=== PATIENT | female | born 1995 | race Caucasian/White ===

== ENCOUNTER 2019-09-13 22:26 | Observation (INO) | payer OTHER, SELFPAY ==
--- NOTE | 2019-09-13 22:26 | OBADM ---
This patient, Deborah Norman, admitted to the OB room OB Post 116 for observation. Patient/family oriented to hospital policies and general routines including ID bracelet, bed and alarms, visiting hours, pain management, procedures, bathroom and other care routines, personal items, smoking policy, room service/diet, and visiting hours. Patient/Family are encouraged to report perceived risks to care and to ask questions if they do not understand what they are told or what they should do.
[2019-09-13 22:35] VITALS: BMI 33.0
[2019-09-13 22:48] VITALS: TEMP 36.5
[2019-09-13 22:55] VITALS: BP 106/54; PULSE 102
[2019-09-13 23:22] LABS: Add Urine Microscopic? YES; Appearance Urine Clear (Clear); Bacteria Urine Trace /hpf; Bilirubin Urine Negative (Negative); Blood Urine Negative (Negative); Calcium Oxalate Crystals Urine Present /hpf; Color Urine Yellow (Yellow); Glucose Urine UA Negative (Negative); Ketones Urine Negative (Negative); Leukocyte Esterase Ur Negative LEU/UL (Negative); Mucus Urine Rare /lpf; Nitrate Urine Negative (Negative); Protein Urine Negative (Negative); RBC Urine 0-2 /hpf (0-2); Specific Grav Ur 1.024 (1.001-1.035); Squamous Epithelial Cell Urine Occasional /hpf (Few); WBC Urine 0-3 /hpf
--- NOTE | 2019-09-13 23:37 | PC.NURSE ---
Updated Dr. Muir with UA results. Updated on maternal assessment and FHR. Discharge orders received.
--- NOTE | 2019-09-13 23:59 | PC.NURSE ---
Discharge instructions reviewed with patient. Patient states understanding of discharge instructions. labor precautions reviewed. Patient educated on support belt and instructed to get one to help with back pain. Patient states understanding. Patient agrees to discharge and denies questions. Patient left OB unit ambulating at [id number].
--- NOTE | 2019-09-14 15:49 | P.PNOB_ITS ---
OB - Triage/Final Diagnosis Evaluation Laboratory results: Laboratory Tests 09/13/19 23:08 Urine Color Yellow Urine Appearance Clear Urine pH 6.0 Ur Specific [place] 1.024 Urine Protein Negative Urine Glucose (UA) Negative Urine Ketones Negative Ur Blood (Man) Negative Urine Nitrate Negative Urine Bilirubin Negative Urine Urobilinogen 2.0 H Leukocyte Esterase Rfl Negative Urine RBC 0-2 Urine WBC 0-3 Ur Squamous Epith Cells Occasional Calcium Oxalate Crystal Present Urine Bacteria Trace Urine Mucus Rare Vital signs: Vital Signs - 24 hr 09/13/19 22:48 09/13/19 22:55 Temperature 36.5 C Pulse Rate 102 H Blood Pressure 106/54 L Final Diagnosis (1) Back pain affecting : Code(s): O99.89 - Other specified diseases and conditions complicating , childbirth and the puerperium; M54.9 - Dorsalgia, unspecified Status: Acute
== END 2019-09-13 23:59 | disposition home or self-care (01) ==
PROVIDERS: Admitting Provider Obstetrics & Gynecology; PCP Family Medicine; Visit Provider Obstetrics & Gynecology
DX: O99.89 Other specified diseases and conditions complicating pregnancy, childbirth and the puerperium (principal); M54.9 Dorsalgia, unspecified; Z3A.00 Weeks of gestation of pregnancy not specified
CPT/HCPCS: 81001; G0378; G0379

== ENCOUNTER 2019-10-24 16:57 | Outpatient (RCR) | payer OTHER, SELFPAY ==
--- NOTE | ~2019-10-24 | US_ITS ---
EXAMINATION: US OB limited w BPP DATE: 10/24/2019 18:09 CDT INDICATION: Decreased movements. TECHNIQUE: Real-time transabdominal obstetric ultrasound. FINDINGS: No prior studies for comparison. There is a single living fetus in breech presentation. The placenta is anterior without placenta pre via. cardiac activity and movement is noted with a heart rate of 169 beats per minute. Biophysical profile: breathin of 2 movement: 2 of 2 tone: 2 of 2 Amniotic flud pocket: 2 of 2 Total score: 8 of 8 IMPRESSION: 1. Single living intrauterine in breech presentation. 2: Total biophysical profile score of 8/8. Reviewed, dictated and finalized at location A.
[2019-10-24 18:28] VITALS: BP 111/52; PULSE 105
== END 2020-01-22 23:59 | disposition home or self-care (01) ==
LOC: ANHOBOP 16:57
PROVIDERS: PCP Family Medicine; Visit Provider Obstetrics & Gynecology
DX: O36.8120 Decreased fetal movements, second trimester, not applicable or unspecified (principal); O24.419 Gestational diabetes mellitus in pregnancy, unspecified control; Z3A.27 27 weeks gestation of pregnancy
CPT/HCPCS: 59025; 76815; 76819

== ENCOUNTER 2019-11-15 15:53 | Observation (INO) | payer OTHER, SELFPAY ==
[2019-11-15] VITALS (38 sets, daily range): BP systolic 100–111; BP diastolic 55–68; PULSE 102–115; TEMP 36.6; O2SAT 97–100; BMI 33.0
[2019-11-15 16:30] LABS: Glucose Point of Care 58 (65-105)
[2019-11-15 18:02] LABS: Glucose Point of Care 69 (65-105)
[2019-11-15 18:07] LABS: Hematocrit 36.4 % (37.0-47.0); Hemoglobin 12.2 g/dL (12.0-15.0); Mean Corpuscular HGB Conc 33.5 g/dl (32-36); Mean Corpuscular Hemoglobin 28.2 pg (26-34); Mean Corpuscular Volume 84.1 fl (80-100); Mean Platelet Volume 10.2 fl (7.4-10.4); Platelet Count Result 223 k/mm3 (150-375); Red Blood Count 4.33 M/mm3 (4.2-5.4); Red Cell Distribution Width 13.2 % (11.5-14.5); White Blood Count 15.8 K/mm3 (4.5-10.0)
[2019-11-15 18:16] LABS: Alanine Aminotransferase 10 U/L (4-35); Albumin Level 3.7 g/dL (3.5-5.1); Alkaline Phosphatase 107 U/L (38-126); Anion Gap 8 mmol/L (8-16); Aspartate Amino Transferase 14 U/L (14-36); Bilirubin,Total 0.3 mg/dL (0.2-1.3); Blood Urea Nitrogen 6 mg/dL (7-17); Calcium 9.3 mg/dL (8.4-10.2); Carbon Dioxide 21 mmol/L (22-30); Chloride 103 mmol/L (98-107); Estimated CRCL calculation 178 ml/min; Estimated Glomerular Filt Rate > 60; Glucose 86 mg/dL (65-105); Potassium 3.8 mmol/L (3.4-5.0); Sodium 132 mmol/L (137-145)
--- NOTE | 2019-11-17 08:43 | PM.OBTRLD ---
OB - Triage/Final Diagnosis Visit Information Reason for evaluation: threatened labor Evaluation Laboratory results: Laboratory Tests 11/15/19 11/15/19 11/15/19 16:19 17:48 17:48 WBC 15.8 H RBC 4.33 Hgb 12.2 Hct 36.4 L MCV 84.1 MCH 28.2 MCHC 33.5 RDW 13.2 Plt Count 223 MPV 10.2 Sodium 132 L Potassium 3.8 Chloride 103 Carbon Dioxide 21 L Anion Gap 8 BUN 6 L Creatinine 0.40 L Estim Creat Clear Calc 178 Estimated GFR > 60 Glucose 86 POC Capillary Glucose 58 L* Calcium 9.3 Total Bilirubin 0.3 AST 14 ALT 10 Alkaline Phosphatase 107 Total Protein 7.0 Albumin 3.7 11/15/19 17:58 WBC RBC Hgb Hct MCV MCH MCHC RDW Plt Count MPV Sodium Potassium Chloride Carbon Dioxide Anion Gap BUN Creatinine Estim Creat Clear Calc Estimated GFR Glucose POC Capillary Glucose 69 Calcium Total Bilirubin AST ALT Alkaline Phosphatase Total Protein Albumin
== END 2019-11-15 18:40 | disposition home or self-care (01) ==
PROVIDERS: Obstetrics & Gynecology; Admitting Provider Obstetrics & Gynecology; PCP Family Medicine; Visit Provider Obstetrics & Gynecology
DX: O47.9 False labor, unspecified (principal); Z3A.00 Weeks of gestation of pregnancy not specified
CPT/HCPCS: 36415; 80053; 85027; G0378; G0379

== ENCOUNTER 2019-12-12 19:52 | Observation (INO) | payer OTHER, SELFPAY ==
--- NOTE | 2019-12-12 19:52 | OBADM ---
This patient, Deborah Norman, admitted to the OB room Labor/Delivery/Recovery 105 for observation. Patient/family oriented to hospital policies and general routines including ID bracelet, bed and alarms, visiting hours, pain management, procedures, bathroom and other care routines, personal items, smoking policy, room service/diet, and visiting hours. Patient/Family are encouraged to report perceived risks to care and to ask questions if they do not understand what they are told or what they should do.
[2019-12-12 20:11] VITALS: RESP 18; TEMP 36.5
[2019-12-12 20:13] VITALS: BP 111/69; PULSE 118
[2019-12-12 20:15] VITALS: BP 116/68; PULSE 109; BMI 34.6
[2019-12-12 20:35] LABS: Glucose Point of Care 95 (65-105)
[2019-12-12 20:40] LABS: Add Urine Microscopic? YES; Amorphous Sediment Urine Few; Appearance Urine Cloudy (Clear); Bacteria Urine Trace /hpf; Bilirubin Urine Negative (Negative); Blood Urine Negative (Negative); Color Urine Yellow (Yellow); Glucose Urine UA Negative (Negative); Ketones Urine 1+ mg/dL (Negative); Leukocyte Esterase Ur 2+ LEU/UL (NEGATIVE); Mucus Urine Rare /lpf; Nitrate Urine Negative (Negative); Protein Urine 1+ mg/dL (Negative); Specific Grav Ur 1.027 (1.001-1.035); Squamous Epithelial Cell Urine Moderate /hpf (Few); Urobilinogen Urine Negative mg/dL (<2.0); WBC Urine 51-75 /hpf (0-3)
[2019-12-12] MEDS: LACTATED RINGERS 1,000 ML 999 ML IV CONT (21:05)
[2019-12-12 22:52] VITALS: BP 108/70; PULSE 101
[2019-12-12] MEDS: ACETAMINOPHEN 500 MG TABLET 1000 MG PO (23:19)
[2019-12-12] MEDS: FAMOTIDINE 20 MG TABLET PO (23:20)
[2019-12-13] MEDS: LACTATED RINGERS 1,000 ML 200 ML IV CONT ×2 (00:01→05:03)
[2019-12-13] MEDS: INSULIN HUMAN NPH (*BKC) 100 UNITS/ML 14 UNITS SUB-Q (00:17)
[2019-12-13 06:32] VITALS: BP 109/66; PULSE 93; TEMP 36.3
[2019-12-13 07:45] LABS: Glucose Point of Care 77 (65-105)
--- NOTE | 2019-12-18 09:12 | PM.OBTRLD ---
OB - Triage/Final Diagnosis Evaluation Laboratory results: Laboratory Tests 12/12/19 12/12/19 12/13/19 20:27 20:32 06:41 POC Capillary Glucose 95 77 Urine Color Yellow Urine Appearance Cloudy H Urine pH 6.0 Ur Specific [place] 1.027 Urine Protein 1+ H Urine Glucose (UA) Negative Urine Ketones 1+ H Ur Blood (Man) Negative Urine Nitrate Negative Urine Bilirubin Negative Urine Urobilinogen Negative Ur Leukocyte Esterase 2+ H Urine RBC 3-5 H Urine WBC 51-75 H Ur Squamous Epith Cells Moderate H Amorphous Sediment Few H Urine Bacteria Trace Hyaline Casts 1-2 Urine Mucus Rare Final Diagnosis (1) False labor: Code(s): O47.9 - False labor, unspecified Status: Acute
== END 2019-12-13 07:41 | disposition home or self-care (01) ==
PROVIDERS: Obstetrics & Gynecology; Admitting Provider Obstetrics & Gynecology; PCP Family Medicine; Visit Provider Obstetrics & Gynecology
DX: O47.9 False labor, unspecified (principal); Z3A.00 Weeks of gestation of pregnancy not specified
CPT/HCPCS: 81001; 87086; 87088; 96360; 96361; A9270; G0378; G0379; J1815; J7120

== ENCOUNTER 2019-12-18 17:40 | Observation (INO) | payer OTHER, SELFPAY ==
[2019-12-18] VITALS (9 sets, daily range): BP systolic 94–111; BP diastolic 50–67; PULSE 107–125
[2019-12-18 19:50] LABS: Glucose Point of Care 110 (65-105)
--- NOTE | 2019-12-18 20:34 | LDADM ---
This patient, Deborah Norman, was admitted to OB Post 116 on 12/18/19 at 17:40. Plans for labor, pain management and were discussed with patient. Patient/family oriented to hospital policies and general routines including ID bracelet, bed and alarms, visiting hours, pain management, procedures, bathroom and other care routines, personal items, smoking policy, room service/diet and guest tray routines, infant security routines, and visiting hours. Patient/Family are encouraged to report perceived risks to care and to ask questions if they do not understand what they are told or what they should do. See OBIX for further documentation.
--- NOTE | 2019-12-18 20:58 | PC.NURSE ---
1824- pt came in c/o pelvic pressure and upper thigh pain, she believes that she lost her mucous plug yesterday. Pt sees Dr. Elliott at [facility] for GDM and plans to deliver at [facility]. pt states that she might feel some contractions but shes not sure if that's really what she is feeling.
--- NOTE | 2019-12-22 08:56 | PM.OBTRLD ---
OB - Triage/Final Diagnosis Visit Information Reason for evaluation: threatened labor Evaluation Laboratory results: Laboratory Tests 12/18/19 19:47 POC Capillary Glucose 110
== END 2019-12-18 20:45 | disposition home or self-care (01) ==
PROVIDERS: Admitting Provider Obstetrics & Gynecology; PCP Family Medicine; Visit Provider Obstetrics & Gynecology
DX: O47.9 False labor, unspecified (principal); Z3A.00 Weeks of gestation of pregnancy not specified
CPT/HCPCS: G0378; G0379

== ENCOUNTER 2019-12-26 19:53 | Observation (INO) | payer OTHER, SELFPAY ==
[2019-12-26] VITALS (11 sets, daily range): BP systolic 99–122; BP diastolic 50–69; PULSE 101–117; BMI 35.0
--- NOTE | 2019-12-27 01:43 | OBADM ---
This patient, Deborah Norman, admitted to the OB room Labor/Delivery/Recovery 103 for observation. Patient/family oriented to hospital policies and general routines including ID bracelet, bed and alarms, visiting hours, pain management, procedures, bathroom and other care routines, personal items, smoking policy, room service/diet, and visiting hours. Patient/Family are encouraged to report perceived risks to care and to ask questions if they do not understand what they are told or what they should do.
--- NOTE | 2019-12-27 01:45 | PC.NURSE ---
2300: pt given instructions for discharge. Advised pt to follow up with her MD at [facility]. Pt did not know names of MD she has been seeing at [facility].
--- NOTE | 2019-12-27 17:18 | PM.OBTRLD ---
OB - Triage/Final Diagnosis Visit Information Reason for evaluation: threatened labor Evaluation Baseline heart rate: 144 Variability: Average (6-10) monitor accelerations: Present monitor decelerations: None Cervical dilation (cm): 0 Cervical effacement (%): 50 station: -3 Vital signs: Vital Signs - 24 hr 12/26/19 20:12 12/26/19 20:16 12/26/19 20:31 Pulse Rate 113 H 111 H 117 H Blood Pressure 122/69 109/50 L 115/62 12/26/19 20:46 12/26/19 21:01 12/26/19 21:16 Pulse Rate 109 H 112 H 102 H Blood Pressure 106/56 L 99/50 L 106/66 12/26/19 21:31 12/26/19 21:46 12/26/19 22:01 Pulse Rate 101 H 103 H 101 H Blood Pressure 109/62 102/60 109/64 12/26/19 22:16 12/26/19 22:31 Pulse Rate 101 H 104 H Blood Pressure 112/61 108/60 Final Diagnosis (1) False labor: Code(s): O47.9 - False labor, unspecified Status: Acute
== END 2019-12-26 23:11 | disposition home or self-care (01) ==
PROVIDERS: Admitting Provider Obstetrics & Gynecology; PCP Family Medicine; Visit Provider Obstetrics & Gynecology
DX: O47.03 False labor before 37 completed weeks of gestation, third trimester (principal); Z3A.36 36 weeks gestation of pregnancy
CPT/HCPCS: G0378; G0379

== ENCOUNTER 2020-02-11 18:59 | Emergency (ER) | payer OTHER, SELFPAY ==
[2020-02-11 19:06] VITALS: BP 127/74; PULSE 76; RESP 18; TEMP 36.4; O2SAT 99
--- NOTE | 2020-02-11 19:58 | ED.NEUROSD ---
HPI - Neuro Symptoms/Deficit General Chief Complaint: Neuro Symptoms/Deficit Stated Complaint: back pain Time Seen by Provider: 02/11/20 19:21 Source: patient Mode of arrival: ambulatory Limitations: no limitations History of Present Illness HPI Narrative: 24-year-old female Presents for evaluation of back and neck and arm pain Patient states that she was injured at work roughly a year ago She was going through Worker's Comp. getting physical therapy and some kinds of pain injections Her belief is that when she did not improve from that that her employer fired her rather than pay for her to have an MRI for further evaluation Subsequent to that she found out she was and the whole thing was put on hold for a while due to that and pandemic issues with access Now that she had her baby about a month ago and continues to have symptoms she would like to be reevaluated The back pain is central mid back and worse with some movements The neck pain tends to be on the right side and radiates into her right shoulder and arm and is worse with moving her head or neck to the right that is associated with some paresthesias in the right arm as well There is no lower extremity numbness or weakness and no bowel or bladder symptoms Onset (ago): month(s) Related Data Home Medications Medication Instructions Recorded Confirmed albuterol sulfate 1 puff INHALATION PRN PRN 09/13/19 12/26/19 cetirizine 10 mg PO DAILY 09/13/19 12/26/19 folic acid 4 mg PO DAILY 09/13/19 12/26/19 Humulin N NPH Insulin KwikPen 24 unit SUBCUT HS 12/12/19 12/26/19 aspirin 81 mg PO DAILY 12/12/19 12/26/19 famotidine 20 mg PO DAILY 12/12/19 12/26/19 insulin lispro 4 unit SUBCUT DAILY 12/12/19 12/26/19 metformin 1,000 mg PO BID 12/12/19 12/26/19 Allergies Allergy/AdvReac Type Severity Reaction Status Date / Time lithium Allergy Mild Shakiness Verified 04/05/19 13:02 lavender (Lavandula Allergy Dyspnea / Verified 12/12/19 22:02 angustifolia) SOB phenazopyridine [From Azo] Allergy Hives Verified 12/12/19 22:02 aspartame AdvReac Migraine Verified 12/13/19 06:59 Review of Systems Constitutional: Constitutional: Denies chills and Denies fever(s) Musculoskeletal: Musculoskeletal: Reports as per HPI, Reports back pain, Reports myalgias and Reports arthralgias Neurologic: Denies focal weakness and Reports numbness PMFSH Past Medical History Medical History (Updated 02/11/20 @ 20:15 by Austin Noland MD) Allergic rhinitis Hypothyroidism Scoliosis of thoracic spine Social History Social History Smoking status: Never smoker Second hand tobacco smoke exposure: No Alcohol intake: never Gender identity (if verbalized by the patient): Female Exam Const: General: no acute distress and alert Nutritional Appearance: well nourished Orientation/consciousness: patient oriented x3 HENMT: Head: normal to inspection, no contusions and no hematomas Eyes: Conjunctivae: conjunctivae normal EOM: EOMs intact bilaterally Neck: Other: Neck is nontender Range of motion is modestly reduced with rotation or flexion to the right, and that does cause radicular pain into the shoulder and arm Resp: Effort & Inspection: normal respiratory effort and not labored Back/Spine/Pelvis: Other: Mild tenderness in mid back Skin: General skin exam: normal color Rashes: no rashes Neuro: General: patient oriented x3, moves all extremities and no focal motor deficits Other: Upper extremities are equally strong bilaterally Pulses are normal at both wrists Sensation to light touch may be decreased in the C8 distribution in the right hand Lower extremity strength is equal Extrem: General: normal to inspection Course Course Emergency Course: Discussed with patient that her symptoms are consistent with cervical radiculopathy but that the back pain was too low to account for those symptoms And
[2020-02-11 20:35] VITALS: BP 100/63; PULSE 89; RESP 16; TEMP 36.6; O2SAT 100
== END 2020-02-11 20:39 | disposition home or self-care (01) ==
PROVIDERS: Emergency Provider Emergency Medicine; PCP Family Medicine
DX: M54.12 Radiculopathy, cervical region (principal); E03.9 Hypothyroidism, unspecified
CPT/HCPCS: 99283

== ENCOUNTER 2020-03-21 08:30 | Outpatient (RCR) | payer OTHER, SELFPAY ==
--- NOTE | 2020-03-04 11:32 | PTOPEVAL ---
PHYSICAL THERAPY EVALUATION AND PLAN OF CARE 03-04-2020 Thank you for referring Deborah Norman to [facility].? She is scheduled to be seen for therapy? 2 x/week for 3 weeks. Please review, sign, date and return this plan of care EVANGELISTA. I agree with and certify that the following plan of care is medically necessary. Referring Physician Date Attending Provider: Shelli Avelar MD *PT Outpatient Evaluation Start: 03/04/20 10:41 Document 03/04/20 10:30 KEESHA (Rec: 03/04/20 11:32 KEESHA [id number]) A Outpatient Past Medical History Past Medical History Source of Past Medical History Patient,Recalled from Previous Visit, Confirmed with Patient /Family Neurological History Hx Neurological Disorders No Significant History Cardiovascular History Hx Cardiac Disorders No Significant History Respiratory History Hx Asthma Yes: have inhalers Gastrointestinal History Hx Gastroesophageal Reflux Disease Yes Hx Other Gastrointestinal Disorders Yes: lactose intolerant Genitourinary History Hx Genitourinary Disorders No Significant History Musculoskeletal History Hx Back Pain Yes: scoliosis Hx Other Musculoskeletal Disorders Yes: B achilles tendonitis surg ; '17 B plantar faciitis surg Endocrine History Hx Other Endocrine Disorders Yes: gestational diabetes HEENT History Hx Tonsillectomy Yes Reproductive History Hx Other Reproductive Disorders Yes: had baby 8 wk ago,natural ; no restrictions from [employer] Psychosocial History Hx Anxiety Yes Hx Depression Yes Hx Other Psychiatric Disorders Yes: stated have some mental health issues Pain History History of Any Previous or Ongoing No Significant History Instance of Pain Anesthesia History Hx Other Anesthesia Reactions Yes: N/V Evaluation Information Problem Diagnosis thoracic-lumbar- sacral pain Onset Jan 2019 Subjective Information in January 2019- was pushing Query Text:As Reported By Patient/ grocery carts, felt pop in Family middle of back; back locks up , problems with pain in back, cannot lift R arm up; was at work was work comp, but fired from there; previously had back pain from scoliosis, but after above accident pain is 10 x worse in back; had PT in the past did not work- had exercises and s
--- NOTE | 2020-03-06 08:31 | PCPTNOTE ---
pt called 30 min after appt time to cancel, due to having a sick child and has been up all night;
--- NOTE | 2020-03-17 09:33 | PCPTNOTE ---
pt did not show for today's appt; called her, she slept through appt, has sick baby; reminded her of next appt 03-21-20 for reeval.
--- NOTE | 2020-03-21 09:04 | PTOPEVAL ---
PHYSICAL THERAPY RE-EVALUATION 03-21-20 Refer to the clinical summary below for the comparison to the initial evaluation. She has a follow up appointment and wants to discuss PT treatments. Today, she reports pain is worse and therapy is not helping. If PT is to continue, please give her a new script. If additional orders are not received, she will be discharged from PT services. Thank you for referring Deborah Norman to [facility].? Please review, sign, date and return this reevaluation report EVANGELISTA. I agree with and certify that the following plan of care is medically necessary. Referring Physician Date Attending Provider: Shelli Avelar MD Document 03/21/20 08:20 KEESHA (Rec: 03/21/20 09:04 KEESHA [id number]) Assessment Status Re-evaluation Subjective Information Roopa reports: therapy is not Query Text:As Reported By Patient/ helping, have been doing Family exercises, feel like pain is getting more- over middle and low back, depends upon what I am doing--always hurts and cannot de anything; has dr appointment next week, want to see what the dr says before stop therapy. Pain Assessment Timing of Pain Assessment Timing of Pain Assessment Assessment Pain Scale Pain Scale Used Numeric (1 - 10) Self Report Pain Assessment Bilateral Spine, Lumbar Reported Pain Level 6 Pain Description Pressure Radicular Pain Location bone pain in thoracic spine Pain Frequency Chronic Other Pain Description hurting so bad, was crying; back locks up in flexion & extension positions Lowest Pain Intensity 6 Greatest Pain Intensity 9 Pain Aggravating Factors Exercise/Activity,Lifting Other Pain Aggravating Factors moving/lifting coffee table, rocking baby; Pain Behaviors Anxious Pain Score Pain Score 6: Self Report Additional Pain Score Comments reports: tolerance with sitting 10 min/walk 5 min/ sleep awaken 3-4 x/night; have fallen to the ground about 2x/week due to back; pt reports she has to leave in 30 minutes, has another appointment; self assessment Oswestry low back questionnaire score of 72 % limitation in activity tolerance. Interventions Used Interventions Used By
--- NOTE | 2020-04-21 12:58 | PCPTNOTE ---
PHYSICAL THERAPY DISCHARGE 04-21-20 Attending Provider: Shelli Avelar MD Patient:Deborah Norman Date of :1995 Ms. Norman has not returned for any further treatments since the reevaluation on 03/21/2020, therefore she will be discharged at this time. Refer to the reevaluation report for her status at the last session. Thank you for referring Deborah to [facility]. Please review, sign, date and return this discharge summary EVANGELISTA. I have been updated about the patient's current status and I agree with discharge from the above service at this time. Referring Physician Date
== END 2020-04-22 10:13 | disposition home or self-care (01) ==
LOC: ANHPT 08:30
PROVIDERS: PCP Family Medicine; Referring Provider Family Medicine; Visit Provider Family Medicine
DX: M51.9 Unspecified thoracic, thoracolumbar and lumbosacral intervertebral disc disorder (principal)
CPT/HCPCS: 97014; 97110; 97161; G0283

== ENCOUNTER 2020-05-03 13:40 | Outpatient (CLI) | payer OTHER, SELFPAY ==
--- NOTE | ~2020-05-03 | MR_ITS ---
EXAMINATION: MR thoracic spine wo con EXAM DATE: 05/03/2020 14:46 INDICATION: Thoracic pain. TECHNIQUE: Multi-sequential, multiplanar MR images of the thoracic spine were obtained without contra st. Sagittal T1, T2, T2 fat saturation, axial T2 weighted images reviewed. There is no prior study for comparison. FINDINGS: The vertebral bodies are aligned in the AP dimension. Vertebral body and disc heights are w ell-maintained. Thoracic disc heights are confined to their endplate margins. The thoracic spinal can al and neural foramen are widely patent. Number than mild mid and lower thoracic facet arthropathy. T he spinal cord signal intensity and intrinsic morphology is normal. There are no suspicious marrow si gnal abnormalities. Paraspinal soft tissue is unremarkable. IMPRESSION: Unremarkable MR thoracic spine wo con exam. Reviewed, dictated and finalized at location A. [facility]
== END 2020-05-03 13:41 | disposition home or self-care (01) ==
LOC: ANHIMG 13:43
PROVIDERS: PCP Family Medicine; Visit Provider Nurse Practitioner Family
DX: M54.6 Pain in thoracic spine (principal)
CPT/HCPCS: 72146

== ENCOUNTER 2020-05-06 10:13 | Outpatient (CLI) | payer OTHER, SELFPAY | END 2020-05-06 10:14 | disposition home or self-care (01) | LOC: ANHCOVIDVC 10:13 | PROVIDERS: PCP Family Medicine | DX: Z23 Encounter for immunization (principal) | CPT/HCPCS: 0001A; 91300 ==

== ENCOUNTER 2020-05-27 10:07 | Outpatient (CLI) | payer OTHER, SELFPAY | END 2020-05-27 10:08 | disposition home or self-care (01) | LOC: ANHCOVIDVC 10:07 | PROVIDERS: PCP Family Medicine | DX: Z23 Encounter for immunization (principal) | CPT/HCPCS: 0002A; 91300 ==

== ENCOUNTER 2020-07-31 13:59 | Outpatient (CLI) | payer OTHER, SELFPAY ==
--- NOTE | ~2020-07-31 | XR_ITS ---
EXAMINATION: XR chest 2V DATE: 07/31/2020 14:40 INDICATION: Palpitations. TECHNIQUE: Frontal and lateral views of the chest were obtained. COMPARISON: Chest 2 views 04/18/2017 FINDINGS: The chest demonstrates clear lungs without pneumonia, pleural effusion, or pneumothorax. Th e heart size is normal. IMPRESSION: 1. No acute cardiopulmonary disease. Reviewed, dictated and finalized at location A.
--- NOTE | 2020-07-31 14:15 | ECG_ITS ---
Measurements Intervals [place] Rate: 60 P: 17 VT: 125 QRS: 42 QRSD: 81 T: 27 QT: 406 QTc: 407 Interpretive Statements SINUS RHYTHM WITH SINUS ARRHYTHMIA EARLY PRECORDIAL R/S TRANSITION BASELINE ARTIFACT- I, II, III, AVR, AVL, AVF BORDERLINE ECG Electronically Signed On 07-31-2020 16:29:08 CDT by Javed Sánchez D.O.
== END 2020-07-31 14:00 | disposition home or self-care (01) ==
PROVIDERS: PCP Family Medicine; Visit Provider Family Medicine
DX: R00.2 Palpitations (principal)
CPT/HCPCS: 71046; 93005

== ENCOUNTER 2021-01-14 08:56 | Outpatient (CLI) | payer OTHER, SELFPAY ==
--- NOTE | 2021-01-14 11:00 | NEURO_ITS ---
Impression: # Complains of numbness of left leg. # Normal nerve conduction study. # Normal needle/EMG exam. Nerve Conduction Studies Anti Sensory Summary Table Stim Site NR Peak (ms) P-T Amp (?V) Site1 Site2 Delta-P (ms) Dist (cm) Todd (m/s) Left Sup Fibular Anti Sensory (Ant Lat Mall) 14 cm 2.7 22.3 14 cm Ant Lat Mall 2.7 16.0 59 Right Sup Fibular Anti Sensory (Ant Lat Mall) 14 cm 2.8 33.0 14 cm Ant Lat Mall 2.8 16.0 57 Left Sural Anti Sensory (Lat Mall) Calf 3.2 17.2 Calf Lat Mall 3.2 16.0 50 Right Sural Anti Sensory (Lat Mall) Calf 3.3 10.5 Calf Lat Mall 3.3 16.0 48 Motor Summary Table Stim Site NR Onset (ms) O-P Amp (mV) Site1 Site2 Delta-0 (ms) Dist (cm) Todd (m/s) Left Lateral Plantar Motor (ADM) Med Mall 4.2 1.8 Right Lateral Plantar Motor (ADM) Med Mall 4.1 0.8 Left Peroneal Motor (Vastus Med) Ankle 4.0 2.5 Popit Ankle 6.3 35.0 56 Popit 10.3 2.9 Right Peroneal Motor (Vastus Med) Ankle 3.3 5.0 Popit Ankle 6.4 35.0 55 Popit 9.7 4.0 Left Tibial Motor Run #1 (Abd Cortez Brev) Ankle 4.0 4.0 Knee Ankle 7.3 39.0 53 Knee 11.3 4.8 Right Tibial Motor (Abd Cortez Brev) Ankle 3.6 5.7 Knee Ankle 7.1 37.0 52 Knee 10.7 2.6 F Wave Studies NR F-Lat (ms) L-R F-Lat (ms) Left Peroneal (Mrkrs) (EDB) 42.81 0.04 Right Peroneal (Mrkrs) (EDB) 42.77 0.04 Left Tibial (Mrkrs) (Abd Hallucis) 43.75 0.50 Right Tibial (Mrkrs) (Abd Hallucis) 43.25 0.50 EMG Side Muscle Nerve Root Ins Act Fibs Amp Dur Recrt Comment Right AntTibialis Dp Br Fibular L4-5 Nml Nml Nml Nml Nml Right Gastroc Tibial S1-2 Nml Nml Nml Nml Nml Right Fibularis Long Sup Br Fibular L5-S1 Nml Nml Nml Nml Nml Right Flex Dig Long Tibial L5-S2 Nml Nml Nml Nml Nml Right Ext Dig Brev Dp Br Fibular L5, S1 Nml Nml Nml Nml Nml Left AntTibialis Dp Br Fibular L4-5 Nml Nml Nml Nml Nml Left Gastroc Tibial S1-2 Nml Nml Nml Nml Nml Left Fibularis Long Sup Br Fibular L5-S1 Nml Nml Nml Nml Nml Left Flex Dig Long Tibial L5-S2 Nml Nml Nml Nml Nml Left Ext Dig Brev Dp Br Fibular L5, S1 Nml Nml Nml Nml Nml Right QuadratusFem QuadFemoris L4-5, S1 Nml Nml Nml Nml Nml Left QuadratusFem QuadFemoris L4-5, S1 Nml Nml Nml Nml Nml MTDD
== END 2021-01-14 08:57 | disposition home or self-care (01) ==
LOC: ANHNEURO 08:58
PROVIDERS: PCP Family Medicine; Visit Provider Nurse Practitioner Family
DX: G62.9 Polyneuropathy, unspecified (principal)
CPT/HCPCS: 95886; 95911

== ENCOUNTER 2021-09-15 23:08 | Emergency (ER) | payer OTHER, SELFPAY ==
[2021-09-15 23:10] VITALS: BP 127/76; PULSE 90; RESP 16; TEMP 36.2; O2SAT 100
--- NOTE | 2021-09-16 01:13 | ED.SKABFB ---
HPI - Skin/Abscess/Foreign Bdy General Chief complaint: Skin/Abscess/Foreign Body Stated complaint: bee sting Time Seen by Provider: 09/16/21 00:29 Source: patient Mode of arrival: ambulatory Limitations: no limitations History of Present Illness HPI narrative: Patient is a 26 y/o female who presents to the ED with c/o swelling to L lateral ankle. Patient reports she was stung by a wasp in her left lateral lower leg in the afternoon of 09/14. She then noticed swelling to her L lateral lower leg/ankle the next day (09/15) after getting home from work. She became concerned and decided to come to the ED. She has not tried anything for her symptoms. 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 No itching. Some mild discomfort. No fevers or chills, numbness, tingling. Patient report she is allergic to mosquito bites and typically has localized reaction. Related Data Home Medications Medication Instructions Recorded Confirmed albuterol sulfate 90 mcg/actuation 1 puff inhalation PRN PRN 09/13/19 03/27/21 aerosol inhaler Shortness Of Breath ibuprofen 600 mg tablet 600 mg PO TID 03/27/20 03/27/21 levonorgestrel 17.5 mcg/24 hrs 1 device intrauterine ONCE 07/23/20 03/27/21 (5yrs) 19.5mg intrauterine device (Kyleena) tizanidine 4 mg tablet 4 mg PO QHS 11/05/20 03/27/21 Allergies Allergy/AdvReac Type Severity Reaction Status Date / Time lithium Allergy Mild Shakiness Verified 09/15/21 23:11 lavender (Lavandula Allergy Dyspnea / Verified 09/15/21 23:11 angustifolia) SOB phenazopyridine [From Azo] Allergy Hives Verified 09/15/21 23:11 aspartame AdvReac Migraine Verified 09/15/21 23:11 Review of Systems Review of Systems: CONSTITUTIONAL: Denies fever, chills, or sweats. SKIN: Reports swelling and redness to left lower leg. MUSCULOSKELETAL: Reports discomfort to left lower leg. Denies back pain. NEUROLOGIC: Denies numbness, tingling, or weakness. All systems reviewed & are unremarkable except as noted in HPI and below PMFSH Past Medical History Medical History Allergic rhinitis Gestational diabetes Hypothyroidism Scoliosis of thoracic spine Surgical History Surgical History H/O foot surgery Hx of tonsillectomy Social History Social History Smoking packs per day: 0.20 Smoking cigarettes per day: 4.0 Years smoked: 6 Smoking pack-years: 1.20 Smoking status: Former smoker Second hand tobacco smoke exposure: No Smoking end date: 04/29/19 Alcohol intake: current Alcohol use details: social Substance use: never Substance use type: does not use Gender identity (if verbalized by the patient): Female Exam Narrative: GENERAL: Well appearing, well-nourished, non-toxic, in no acute distress. HEAD: Normocephalic, atraumatic. NECK: Supple. No adenopathy, no masses. RESPIRATORY: Airway patent, respirations nonlabored. CARDIOVASCULAR: Regular rate and rhythm without murmurs, rubs, or gallops. Pedal pulses 2+ and equal bilaterally. MUSCULOSKELETAL: Moves all extremities. Strength/ROM intact without gross deformities. Circular area of redness to left lateral lower leg with small central vesicle, where patient reports she was stung by wasp. Mild swelling extending around area of redness and distally into left lateral ankle and dorsal foot. No significant warmth. Patient reported decreased sensation over left lateral ankle, but sharp sensation tested and intact. Scattered other circular areas of redness to BLE, which patient reports is from mosquito bites recent obtained. SKIN: Warm, dry. NEURO: A&O X3. Speech clear. Cranial nerves II-XII grossly intact. Steady gait. No ataxic movements. PSYCHIATRIC: Appropriate mood and affect. Normal interaction. Course Vital Signs Vital signs: Vital Signs Temperature 97.2 F L 09/15/21 23:10 Pulse Rate 90 0
== END 2021-09-16 01:30 | disposition home or self-care (01) ==
PROVIDERS: Emergency Provider Emergency Medicine; PCP Family Medicine
DX: T63.461A Toxic effect of venom of wasps, accidental (unintentional), initial encounter (principal); E03.9 Hypothyroidism, unspecified
CPT/HCPCS: 99283

== ENCOUNTER 2022-04-28 14:09 | Outpatient (CLI) | payer OTHER, SELFPAY ==
--- NOTE | ~2022-04-28 | US_ITS ---
EXAMINATION: US pelvic complete w TV DATE: 04/28/2022 14:54 INDICATION: Suprapubic pain for 2 months Comparison:No prior studies for comparison. TECHNIQUE: Multiple transabdominal and endovaginal sonographic images of the pelvis performed. FINDINGS: The uterus measures 8.7 x 4.1 x 5 cm. There is an IUD present in the endometrium. The endom etrial complex measures 5 mm. The right ovary measures 3.9 x 3.8 x 3.5 cm and the left ovary measures 3.5 x 1.9 x 2.6 cm. There ar e small follicles in each ovary. There is a right ovarian cyst measuring 2.3 cm. Normal doppler signa l in both ovaries. There is free fluid in the pelvis. There are no abnormal masses seen on either side. IMPRESSION: 1. Right ovarian cyst measuring 2.3 cm. Reviewed, dictated and finalized at location B. [facility]
== END 2022-04-28 14:10 | disposition home or self-care (01) ==
LOC: ANHIMG 14:11
PROVIDERS: PCP Family Medicine; Visit Provider Obstetrics & Gynecology Gynecology
DX: R10.2 Pelvic and perineal pain (principal); N83.201 Unspecified ovarian cyst, right side
CPT/HCPCS: 76830; 76856

== ENCOUNTER 2022-05-15 11:29 | Emergency (ER) | payer OTHER, SELFPAY ==
[2022-05-15 11:38] VITALS: BP 118/68; PULSE 87; RESP 16; TEMP 36.4; O2SAT 100
--- NOTE | 2022-05-15 11:42 | ED.URI ---
HPI - URI/Sore Throat General Chief Complaint: Upper Respiratory Infection Stated Complaint: Sore Throat Time Seen by Provider: 05/15/22 11:36 Source: patient Mode of arrival: ambulatory Limitations: no limitations History of Present Illness HPI Narrative: Patient is a 26-year-old female that presents with sore throat for 2 weeks. Also reports 1 episode of a nosebleed. Has not taken anything for her symptoms. Reports a fever in the beginning of the 2 weeks but has since resolved. History of tonsillectomy. Related Data Allergies Allergy/AdvReac Type Severity Reaction Status Date / Time lithium Allergy Mild Shakiness Verified 05/15/22 11:36 lavender (Lavandula Allergy Dyspnea / Verified 05/15/22 11:36 angustifolia) SOB phenazopyridine [From Azo] Allergy Hives Verified 05/15/22 11:36 aspartame AdvReac Migraine Verified 05/15/22 11:36 Review of Systems Review of Systems: All systems reviewed & are unremarkable except as noted in HPI and below Constitutional: Constitutional: Denies body ache(s), Denies fever(s), Denies headache(s), Denies malaise and Denies weakness Eyes: Eyes: Denies loss of vision ENT: Denies otalgia, Denies headache(s), Denies nasal congestion, Denies sinus pain and Reports sore throat Cardiovascular: Cardiovascular: Denies chest pain, Denies irregular heart rhythm and Denies dyspnea Respiratory: Respiratory: Denies cough and Denies dyspnea Gastrointestinal: Gastrointestinal: Denies abdominal pain, Denies melena, Denies hematochezia, Denies diarrhea, Denies nausea and Denies vomiting Musculoskeletal: Musculoskeletal: Denies back pain, Denies myalgias and Denies arthralgias Integumentary/Breasts: Skin/Breast: Denies pruritus and Denies rash Neurologic: Denies headache(s), Denies loss of vision and Denies weakness Psychiatric: Psychiatric: Reports no additional psychiatric complaints PMFSH Past Medical History Medical History Allergic rhinitis Gestational diabetes Hypothyroidism Scoliosis of thoracic spine Surgical History Surgical History H/O foot surgery Hx of tonsillectomy Social History Social History (Updated 01/26/22 @ 08:35 by Marlene Liao [facility]) Smoking packs per day: 0.20 Smoking cigarettes per day: 4.0 Years smoked: 6 Smoking pack-years: 1.20 Smoking status: Former smoker Second hand tobacco smoke exposure: No Smoking end date: 04/29/19 Alcohol intake: current Alcohol use details: social Substance use: never Substance use type: does not use Lack of Transportation: No Lack of Food: Never True Current Housing: I Have Housing Concerned About Future Housing: No Difficulty Paying Gas/Electric Bills: No Difficulty Paying for Meds: No Currently Unemployed: No Education: Trade/Vocational Certificate Difficulty w/ Childcare or Family Care: No Living arrangements: with family Occupation/Education: unemployed Gender identity (if verbalized by the patient): Female Spiritual care concerns: No Agree to blood products: Yes Comments At time of signature, agree with nursing past medical, surgical, social and family history. There is no relevant family history pertinent to the presenting complaint. Exam Const: General: cooperative, healthy appearing, comfortable, no acute distress and well nourished Nutritional Appearance: well nourished Orientation/consciousness: patient oriented x3 Limitations: no limitations HENMT: Head: normal to inspection, normocephalic and atraumatic Ears: external ears normal and TM's normal bilaterally Face/Nose/Sinus: Normal external nose present, normal facial exam, sinuses nontender and face symmetric Face and sinus: normal facial exam, sinuses nontender and face symmetric Mouth: Yes Normal oral and palatal mucosa present, Yes lip normal and Yes moist mucous membranes Teeth and gingiva: d
== END 2022-05-15 12:01 | disposition home or self-care (01) ==
PROVIDERS: Emergency Provider Nurse Practitioner Family; PCP Family Medicine
DX: J02.9 Acute pharyngitis, unspecified (principal); Z87.891 Personal history of nicotine dependence; E03.9 Hypothyroidism, unspecified; M41.9 Scoliosis, unspecified
CPT/HCPCS: 87081; 87880; 99213; G0463

== ENCOUNTER 2022-06-01 11:59 | Emergency (ER) | payer OTHER, SELFPAY ==
[2022-06-01 12:05] VITALS: BP 107/65; PULSE 100; RESP 16; TEMP 37.1; O2SAT 100
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
== END 2022-06-01 12:36 | disposition home or self-care (01) ==
PROVIDERS: Emergency Provider Nurse Practitioner; PCP Family Medicine
DX: S09.90XA Unspecified injury of head, initial encounter (principal); W19.XXXA Unspecified fall, initial encounter; E03.9 Hypothyroidism, unspecified; M41.9 Scoliosis, unspecified
CPT/HCPCS: 99212; G0463

== ENCOUNTER 2022-10-26 02:01 | Emergency (ER) | payer OTHER, SELFPAY ==
--- NOTE | ~2022-10-26 | XR_ITS ---
Portable chest x-ray Comparison: 07/31/2020 Clinical History: Seizure Findings: Lungs are clear, without focal consolidation or pleural effusion. Cardiomediastinal silho uette is stable. Bones and soft tissues are unremarkable. Impression: Normal chest. Reviewed, dictated and finalized at [facility]. Impression: Normal chest.
--- NOTE | ~2022-10-26 | CT_ITS ---
Non-contrast Head CT History: Seizure Technique: Axial non-contrast imaging of the brain was performed. Dose reduction technique was used on this scan by utilizing automated exposure control and iterative reconstruction technique. The dose -length product (DLP) was 605.33 mGy-cm. Findings: There is no evidence of intracranial hemorrhage, mass lesion, or acute infarct. Brain par enchyma appears normal. The ventricles and subarachnoid spaces are normal in size. The calvarium ap pears normal. The visualized paranasal sinuses and mastoid air cells are clear. Impression: No significant abnormality seen. Reviewed, dictated and finalized at location . Impression: No significant abnormality seen.
[2022-10-26 02:05] VITALS: BP 128/98; PULSE 64; RESP 14; TEMP 36.6; O2SAT 97
--- NOTE | 2022-10-26 02:25 | PC.NURSE ---
pt. family to frontend engineer stating my is having a sz. RN to assess pt. pt. eyes were blinking rapidly. rn sternal rubbed pt. and pt. awake and responsive.
--- NOTE | 2022-10-26 03:26 | PC.NURSE ---
Patient stated that she has PTSD and would prefer a female nurse. Notified RAHUL Chua who advised to move patient to room 14 for a female nurse.
--- NOTE | 2022-10-26 04:06 | ECG_ITS ---
Measurements Intervals [place] Rate: 87 P: 30 WA: 147 QRS: 50 QRSD: 89 T: 46 QT: 369 QTc: 446 Interpretive Statements SINUS RHYTHM NORMAL ELECTROCARDIOGRAM NO PREVIOUS ECG AVAILABLE FOR COMPARISON Electronically Signed On 10-26-2022 12:07:48 CDT by Timi Polo M.D.
[2022-10-26 04:20] VITALS: O2SAT 100
[2022-10-26 04:53] VITALS: PULSE 84
--- NOTE | 2022-10-26 05:17 | ED.GENADULT ---
HPI - General Adult General Chief complaint: Seizure Stated complaint: 7 sz ? Time Seen by Provider: 10/26/22 03:49 History of Present Illness HPI narrative: Patient 27-year-old female who presents the emergency department with chief complaint of seizure-like activity. The patient reports she has had seizures whenever she was much younger and reports has been under a lot of stress lately. Per the patient and the patient's family the patient has had episodes where she starts staring off and starts having her eyes flutter the patient did fall to the ground had no loss of bowel or bladder function the patient per the family is slightly confused after the episodes. The family reports that she is at 7 of these episodes. Related Data Allergies Allergy/AdvReac Type Severity Reaction Status Date / Time lithium Allergy Mild Shakiness Verified 06/01/22 12:06 lavender (Lavandula Allergy Dyspnea / Verified 06/01/22 12:06 angustifolia) SOB phenazopyridine [From Azo] Allergy Hives Verified 06/01/22 12:06 aspartame AdvReac Migraine Verified 06/01/22 12:06 Review of Systems Review of Systems: A 10 system review of systems was completed on the patient and is negative except for what is stated in the HPI. Nursing and ancillary documentation was reviewed. [facility] Past Medical History Medical History Allergic rhinitis Gestational diabetes Hypothyroidism Scoliosis of thoracic spine Surgical History Surgical History H/O foot surgery Hx of tonsillectomy Social History Social History Smoking packs per day: 0.20 Smoking cigarettes per day: 4.0 Years smoked: 6 Smoking pack-years: 1.20 Smoking status: Former smoker Second hand tobacco smoke exposure: No Smoking end date: 04/29/19 Alcohol intake: current Alcohol use details: social Substance use: never Substance use type: does not use Lack of Transportation: No Lack of Food: Never True Current Housing: I Have Housing Concerned About Future Housing: No Difficulty Paying Gas/Electric Bills: No Difficulty Paying for Meds: No Currently Unemployed: No Education: Trade/Vocational Certificate Difficulty w/ Childcare or Family Care: No Living arrangements: with family Occupation/Education: unemployed Gender identity (if verbalized by the patient): Female Spiritual care concerns: No Agree to blood products: Yes Exam Narrative: GENERAL: Well-appearing, well-nourished, and in no acute distress. HEAD: Normocephalic, atraumatic. EYES: PERRLA and EOMI. ENT: Nares clear, no rhinorrhea or epistaxis. Mucous membranes moist. NECK: Supple. CHEST: Clear to auscultation. No respiratory distress. HEART: Regular rate and rhythm. No murmur heard. Normal peripheral pulses. ABDOMEN: Soft, nontender, nondistended, normal active bowel sounds. EXTREMITIES: Normal range of motion. No edema. SKIN: Warm, dry, no rash. NEURO: No focal deficits. Alert and oriented x3. PSYCH: Normal mood and affect. Course Vital Signs Vital signs: Vital Signs Temperature 36.6 C 10/26/22 02:05 Pulse Rate 64 10/26/22 02:05 Respiratory Rate 14 10/26/22 02:05 Blood Pressure 128/98 H 10/26/22 02:05 Pulse Oximetry 97 10/26/22 02:05 Oxygen Delivery Room Air 10/26/22 02:05 Temperature 36.6 C 10/26/22 02:05 Pulse Rate 87 10/26/22 07:12 Respiratory Rate 16 10/26/22 07:12 Blood Pressure 118/84 10/26/22 07:12 Pulse Oximetry 100 10/26/22 07:12 Oxygen Delivery Room Air 10/26/22 04:20 Medical Decision Making MDM Narrative Medical decision making narrative: Differential diagnosis nonepileptiform seizure, seizure dysrhythmia, Studies were obtained which were within normal limits lactic acid was normal. When the patient was having h
[2022-10-26] MEDS: SODIUM CHLORIDE 0.9% IV 1,000 ML 999 ML IV CONT (05:31)
[2022-10-26] MEDS: LORazepam INJ (*CRX) 2 MG/ML VIAL 1 MG IV PUSH ×2 (05:32→06:24)
[2022-10-26 05:45] LABS: Basophils Percent Auto 0.4 % (0.2-1.2); Eosinophils Absolute Auto 0.4 K/mm3 (0-0.3); Eosinophils Percent Auto 3.8 % (0-4.4); Hematocrit 43.3 % (37.0-47.0); Hemoglobin 14.5 g/dL (12.0-15.0); Immature Granulocyte Absolute 0.03 K/mm3 (0.00-0.031); Immature Granulocyte Percent A 0.3 % (0-0.5); Lymphocytes Absolute Auto 3.48 K/mm3 (0.9-3.2); Lymphocytes Percent Auto 33.6 % (18.3-44.2); Mean Corpuscular HGB Conc 33.5 g/dl (32-36); Mean Corpuscular Hemoglobin 29.3 pg (26-34); Mean Corpuscular Volume 87.5 fl (80-100); Mean Platelet Volume 10.4 fl (7.4-10.4); Monocytes Absolute Auto 0.6 K/mm3 (0.1-0.6); Monocytes Percent Auto 6.1 % (2.6-8.5); Neutrophils Absolute Auto 5.8 K/mm3 (1.3-6.7); Neutrophils Percent Auto 55.8 % (45.5-73.1); Platelet Count Result 289 k/mm3 (150-375); Red Blood Count 4.95 M/mm3 (4.2-5.4); Red Cell Distribution Width 13.2 % (11.5-14.5); White Blood Count 10.4 K/mm3 (4.5-10.0)
[2022-10-26 05:54] LABS: Alanine Aminotransferase 10 U/L (6-35); Albumin Level 3.8 g/dL (3.5-5.1); Alkaline Phosphatase 63 U/L (38-126); Anion Gap 9 mmol/L (8-16); Aspartate Amino Transferase 18 U/L (14-36); Bilirubin,Total 0.4 mg/dL (0.2-1.3); Blood Urea Nitrogen 6 mg/dL (7-17); Calcium 8.6 mg/dL (8.4-10.2); Carbon Dioxide 24 mmol/L (22-30); Chloride 104 mmol/L (98-107); Estimated CRCL calculation 84 ml/min; Estimated Glomerular Filt Rate > 60; Glucose 88 mg/dL (65-110); Potassium 3.5 mmol/L (3.4-5.0); Sodium 137 mmol/L (137-145)
[2022-10-26 05:55] LABS: Lactic Acid Reflex 0.8 mmol/L (0.7-2.0)
[2022-10-26 07:08] LABS: Add Urine Microscopic? YES; Appearance Urine Clear (Clear); Bacteria Urine Rare /hpf; Bilirubin Urine Negative (Negative); Blood Urine Negative (Negative); Color Urine Yellow (Yellow); Glucose Urine UA Negative (Negative); Ketones Urine Trace mg/dL (Negative); Leukocyte Esterase Ur 1+ LEU/UL (Negative); Need Manual Microscopic Reviewed; Nitrate Urine Negative (Negative); Non Pathogenic Casts 0-2; Protein Urine Negative (Negative); RBC Urine 0-2 /hpf (0-2); Specific Grav Ur 1.018 (1.001-1.035); Squamous Epithelial Cell Urine None seen /hpf (Few); WBC Urine 0-5 /hpf
[2022-10-26 07:12] VITALS: BP 118/84; PULSE 87; RESP 16; O2SAT 100
[2022-10-26 08:15] VITALS: BP 100/65; PULSE 80; RESP 16; TEMP 36.7; O2SAT 97
[2022-10-26 08:50] VITALS: TEMP 36.6
[2022-10-27 13:29] LABS: Amphetamine Screen Urine Negative (Negative); Barbiturate Screen Urine Negative (Negative); Benzodiazepines Screen Urine Negative (Negative); Cannabinoid Screen Urine Negative (Negative); Cocaine Screen Urine Negative (Negative); Methadone Screen Urine Negative (Negative); Opiate Screen Urine Negative (Negative); Phencyclidine Screen Urine Negative (Negative)
== END 2022-10-26 08:55 | disposition home or self-care (01) ==
PROVIDERS: Emergency Provider Emergency Medicine; PCP Family Medicine
DX: R56.9 Unspecified convulsions (principal); E03.9 Hypothyroidism, unspecified; Z87.891 Personal history of nicotine dependence
CPT/HCPCS: 36415; 70450; 71045; 80053; 80307; 81001; 81025; 83605; 83735; 85025; 93005; 96361; 96374; 96375; 99284; J2060; J7030

== ENCOUNTER 2023-01-15 22:49 | Emergency (ER) | payer OTHER, SELFPAY ==
--- NOTE | ~2023-01-15 | US_ITS ---
EXAMINATION: US OB <= 14 weeks fetus DATE: 01/16/2023 01:27 INDICATION: Vaginal bleeding. . TECHNIQUE: Real-time transabdominal and transvaginal pelvic ultrasound was performed. COMPARISON: None. FINDINGS: TRANSABDOMINAL ULTRASOUND: The uterus measures 7.1 x 4.5 x 6.1 cm. TRANSVAGINAL ULTRASOUND: There is an intrauterine gestational sac. A yolk sac is identified. The fet al crown rump length measures 4 mm, which correlates with an estimated gestational age of 6 weeks and 1 day(s) (+/-) 4 day(s). heart motion is identified measuring 129 beats per minute (bpm) by M- mode Doppler. The right ovary measures 3.3 x 1.9 x 2.6 cm. The left ovary measures 3.5 x 2.4 x 3.0 cm . There is no free fluid in the pelvis. IMPRESSION: 1. Single living intrauterine gestation with estimated date of delivery of 09/10/2023. Reviewed, dictated and finalized at location E. S [facility]ULLER IMPRESSION: 1. Single living intrauterine gestation with estimated date of delivery of 08/28.
[2023-01-15 23:04] VITALS: BP 108/57; PULSE 77; RESP 16; TEMP 36.2; O2SAT 100
[2023-01-16 00:01] VITALS: BP 112/82; PULSE 79; RESP 15; O2SAT 95
[2023-01-16 00:26] LABS: Basophils Percent Auto 0.2 % (0.2-1.2); Eosinophils Absolute Auto 0.3 K/mm3 (0-0.3); Eosinophils Percent Auto 2.2 % (0-4.4); Hematocrit 43.7 % (37.0-47.0); Hemoglobin 14.5 g/dL (12.0-15.0); Immature Granulocyte Absolute 0.06 K/mm3 (0.00-0.031); Immature Granulocyte Percent A 0.5 % (0-0.5); Lymphocytes Absolute Auto 3.43 K/mm3 (0.9-3.2); Lymphocytes Percent Auto 28.1 % (18.3-44.2); Mean Corpuscular HGB Conc 33.2 g/dl (32-36); Mean Corpuscular Volume 87.4 fl (80-100); Mean Platelet Volume 9.3 fl (7.4-10.4); Monocytes Absolute Auto 0.6 K/mm3 (0.1-0.6); Monocytes Percent Auto 5.2 % (2.6-8.5); Neutrophils Absolute Auto 7.8 K/mm3 (1.3-6.7); Neutrophils Percent Auto 63.8 % (45.5-73.1); Platelet Count Result 351 k/mm3 (150-375); Red Cell Distribution Width 13.2 % (11.5-14.5); White Blood Count 12.2 K/mm3 (4.5-10.0)
--- NOTE | 2023-01-16 00:37 | ED.PREGNANCY ---
HPI - General Chief complaint: Vaginal Bleeding Stated complaint: , vaginal bleeding/pain Time Seen by Provider: 01/15/23 23:54 Source: patient Limitations: no limitations History of Present Illness HPI Narrative: Patient is a 27-year-old female presents to the emergency department are has no bleeding. Patient states that she is based on taking multiple home test in her 1st day of her last menstrual period was December 04. Patient states that she is and has a history of gestational diabetes requiring vacuum assistance in her prior and she has an appointment with her OB on February 02 but has not seen an OB yet and she is currently taking prenatals, knows that her OB will be Dr. Conteh. Patient states that she noticed of bleeding partially 1 hour ago and it was only a small amount when she was wiping and otherwise has not had any significant bleeding. Patient denies dysuria, hematuria, urinary urgency, melena, hematochezia, diarrhea, chest pain, shortness of breath, fever, recent injuries, recent illness. Patient denies history of bleeding disorders. Patient does admit to some urinary frequency. Patient denies any abnormal vaginal discharge. Patient denies history of ectopic or sexually transmitted infections. Patient also states that she has been having some pelvic cramping intermittently for the past couple weeks. Related Data Allergies Allergy/AdvReac Type Severity Reaction Status Date / Time lithium Allergy Mild Shakiness Verified 12/02/22 12:00 lavender (Lavandula Allergy Dyspnea / Verified 12/02/22 12:00 angustifolia) SOB phenazopyridine [From Azo] Allergy Hives Verified 12/02/22 12:00 aspartame AdvReac Migraine Verified 12/02/22 12:00 Review of Systems Review of Systems: A 10 system review of systems was completed on the patient and is negative except for what is stated in the HPI. Nursing and ancillary documentation was reviewed. [facility] Past Medical History Medical History Allergic rhinitis Gestational diabetes Hypothyroidism Scoliosis of thoracic spine Surgical History Surgical History H/O foot surgery Hx of tonsillectomy Social History Social History Smoking packs per day: 0.20 Smoking cigarettes per day: 4.0 Years smoked: 6 Smoking pack-years: 1.20 Smoking status: Former smoker Second hand tobacco smoke exposure: No Smoking end date: 04/29/19 Alcohol intake: current Alcohol use details: social Substance use: never Substance use type: does not use Lack of Transportation: No Lack of Food: Never True Current Housing: I Have Housing Concerned About Future Housing: No Difficulty Paying Gas/Electric Bills: No Difficulty Paying for Meds: No Currently Unemployed: No Education: Trade/Vocational Certificate Difficulty w/ Childcare or Family Care: No Living arrangements: with family Occupation/Education: unemployed Gender identity (if verbalized by the patient): Female Spiritual care concerns: No Agree to blood products: Yes Comments At time of signature, I have reviewed and agree with nursing past medical, surgical, social and family history unless otherwise noted. Please see the nursing chart for further information. There is no relevant family history pertinent to the presenting complaint. Exam Narrative: CONST: No acute distress. Well nourished. HENMT: Head is normocephalic and atraumatic. Moist mucous membranes. No posterior oropharynx erythema. EYES: No conjunctival icterus, injection, or pallor. PERRL. NECK: No meningeal signs. RESP: Able to speak in full sentences. Normal respiratory effort. CTAB. CARDIO: Regular rate. Regular rhythm. 2+ DP and radial pulses bilaterally. GI: Nondistended. No tenderness to palpati
[2023-01-16 01:11] LABS: Anion Gap 8 mmol/L (8-16); Blood Urea Nitrogen 13 mg/dL (7-17); Calcium 9.2 mg/dL (8.4-10.2); Carbon Dioxide 24 mmol/L (22-30); Chloride 106 mmol/L (98-107); Estimated CRCL calculation 92 ml/min; Estimated Glomerular Filt Rate > 60; Glucose 100 mg/dL (65-110); Sodium 138 mmol/L (137-145)
[2023-01-16] MEDS: ACETAMINOPHEN 500 MG TABLET 1000 MG PO (01:11)
[2023-01-16 01:38] LABS: Appearance Urine Cloudy (Clear); Bacteria Urine 1+ /hpf; Bilirubin Urine Negative (Negative); Blood Urine Negative (Negative); Calcium Oxalate Crystals Urine Present /hpf; Color Urine Yellow (Yellow); Glucose Urine UA Negative (Negative); Ketones Urine Trace mg/dL (Negative); Leukocyte Esterase Ur 2+ LEU/UL (Negative); Mucus Urine Present /lpf; Need Manual Microscopic Reviewed; Nitrate Urine Negative (Negative); Non Pathogenic Casts 0-2; Protein Urine Negative (Negative); RBC Urine 0-2 /hpf (0-2); Specific Grav Ur 1.029 (1.001-1.035); Squamous Epithelial Cell Urine Few /hpf (Few); WBC Urine 51-100 /hpf
[2023-01-16 02:00] LABS: Add Urine Microscopic? YES
[2023-01-16] MEDS: CEPHALEXIN 500 MG CAPSULE PO (02:22)
== END 2023-01-16 02:33 | disposition home or self-care (01) ==
PROVIDERS: Emergency Provider Student in an Organized Health Care Education/Training Program; PCP Family Medicine
DX: O20.0 Threatened abortion (principal); O23.41 Unspecified infection of urinary tract in pregnancy, first trimester; N39.0 Urinary tract infection, site not specified; O99.281 Endocrine, nutritional and metabolic diseases complicating pregnancy, first trimester; E03.9 Hypothyroidism, unspecified; Z87.891 Personal history of nicotine dependence; Z3A.01 Less than 8 weeks gestation of pregnancy
CPT/HCPCS: 36415; 76801; 80048; 81001; 84702; 85025; 85461; 86850; 86900; 86901; 87086; 87088; 99284; A9270

== ENCOUNTER 2023-05-08 16:13 | Observation (INO) | payer OTHER, SELFPAY ==
[2023-05-08 16:31] VITALS: BP 105/55; PULSE 103
--- NOTE | 2023-05-08 16:50 | PM.OBTRLD ---
OB - Triage/Final Diagnosis Visit Information Date of evaluation: 05/08/23 Reason for evaluation: other (vaginal discharge) Comments/Additional reasons for admission: I have assessed the risk for this patient, Deborah Roy, and determined that she would benefit from observation care. Evaluation Vital signs: Vital Signs - 24 hr 05/08/23 16:31 Pulse Rate 103 H Blood Pressure 105/55 L Comments: Pt presented with concern of passing her mucous plug. Picture shown to CNM had moderate amount of white/mucousy discharge on underwear. Denies having a gush of fluid or having any steady trickling of fluid. No vaginal bleeding or ctx. Good movement today. CNM on unit. Speculum exam performed. Moderate amount of creamy white physiologic discharge present. Cervix visually closed. Negative valsalva. ROM plus negative. +FHTs. No ctx seen on toco. Pt discharged home.
--- NOTE | 2023-05-08 16:59 | PC.NURSE ---
Patient with complaints of cramping and loosing mucus plug right before coming to the hospital. FHT doppled in the 160s. Patient feeling good movement, no vaginal bleeding or leaking of fluids. No contractions seen on toco or felt per palpation. CNM on unit, reviewed tracing, sterile speck exam, and ROM plus performed by Eric Kelly CNM. Orders received to send UA, unable to void at this time.
[2023-05-08 17:02] VITALS: BMI 26.2
--- NOTE | 2023-05-08 17:02 | OBADM ---
This patient, Deborah Roy, admitted to the OB room [facility] for observation. Patient/family oriented to hospital policies and general routines including ID bracelet, bed and alarms, visiting hours, pain management, procedures, bathroom and other care routines, personal items, smoking policy, room service/diet, and visiting hours. Patient/Family are encouraged to report perceived risks to care and to ask questions if they do not understand what they are told or what they should do.
[2023-05-08 17:44] LABS: Appearance Urine Clear (Clear); Bilirubin Urine Negative (Negative); Blood Urine Negative (Negative); Color Urine Yellow (Yellow); Glucose Urine UA Negative (Negative); Ketones Urine Negative (Negative); Leukocyte Esterase Ur Negative LEU/UL (Negative); Nitrate Urine Negative (Negative); Protein Urine Negative (Negative); Specific Grav Ur 1.026 (1.001-1.035); Urobilinogen Urine 0.2 mg/dL (<2.0)
[2023-05-08 17:47] LABS: Add Urine Microscopic? NO
== END 2023-05-08 17:58 | disposition home or self-care (01) ==
PROVIDERS: Advanced Practice Midwife; Admitting Provider Obstetrics & Gynecology Gynecology; PCP Family Medicine; Visit Provider Obstetrics & Gynecology Gynecology
DX: O99.891 Other specified diseases and conditions complicating pregnancy (principal); N89.8 Other specified noninflammatory disorders of vagina; Z3A.22 22 weeks gestation of pregnancy
CPT/HCPCS: 81003; G0378; G0379

== ENCOUNTER 2024-07-19 10:30 | Emergency (ER) | payer OTHER, SELFPAY ==
[2024-07-19 10:35] VITALS: BP 113/67; PULSE 79; RESP 20; TEMP 36.5; O2SAT 98
--- NOTE | 2024-07-19 10:36 | ED.GENADULT ---
HPI - General Adult General Chief complaint: Ear Stated complaint: RT Ear Pain Time Seen by Provider: 07/19/24 10:39 Source: patient, RN notes reviewed and old records reviewed Mode of arrival: ambulatory Limitations: no limitations History of Present Illness HPI narrative: 29-year-old female presents to the [facility] with 3-4 day history of right ear pressure. Pains radiating into her trauma. Has taken Tylenol. Try cleaning it out with hydrogen peroxide. Onset (ago): day(s) (3-4) Treatments prior to arrival: other (Peroxide, Tylenol) Related Data Home Medications ?Medication ?Instructions ?Recorded ?Confirmed ?Last Taken ?Type propranolol 60 mg capsule,24 60 mg PO DAILY 07/19/24 07/19/24 Unknown History hr,extended release sertraline 50 mg tablet 50 mg PO DAILY 07/19/24 07/19/24 Unknown History Allergies Allergy/AdvReac Type Severity Reaction Status Date / Time lithium Allergy Mild Shakiness Verified 07/19/24 10:45 lavender (Lavandula Allergy Dyspnea / Verified 07/19/24 10:45 angustifolia) SOB phenazopyridine (From Azo) Allergy Hives Verified 07/19/24 10:45 aspartame AdvReac Migraine Verified 07/19/24 10:45 Review of Systems Review of Systems: All systems reviewed & are unremarkable except as noted in HPI and below Constitutional: Constitutional: Reports no additional constitutional complaints ENT: Reports as per HPI Cardiovascular: Cardiovascular: Reports no additional cardiovascular complaints, Denies chest pain and Denies dyspnea Respiratory: Respiratory: Reports no additional respiratory complaints, Denies chest congestion, Denies cough and Denies dyspnea Musculoskeletal: Musculoskeletal: Reports no additional musculoskeletal complaints Integumentary/Breasts: Skin/Breast: Reports system reviewed and no additional complaints, except as docu PMFSH Past Medical History Medical History Gestational diabetes Allergic rhinitis Hypothyroidism Scoliosis of thoracic spine Surgical History Surgical History H/O foot surgery Hx of tonsillectomy Social History Social History Smoking packs per day: 0.20 Smoking cigarettes per day: 4.0 Years smoked: 6 Smoking pack-years: 1.20 Smoking status: Former smoker Second hand tobacco smoke exposure: No Smoking end date: 04/29/19 Alcohol intake: current Alcohol use details: social Substance use: never Substance use type: does not use Lack of Transportation: No Lack of Food: Never True Current Housing: I Have Housing Concerned About Future Housing: No Difficulty Paying Gas/Electric Bills: No Difficulty Paying for Meds: No Currently Unemployed: No Education: Trade/Vocational Certificate Difficulty w/ Childcare or Family Care: No Living arrangements: with family Occupation/Education: unemployed Gender identity (if verbalized by the patient): Female Spiritual care concerns: No Agree to blood products: Yes Comments At the time of my signature, I reviewed and agree with the nursing past medical, surgical, social, and family history. There is no relevant family history pertinent to the patient complaint. Exam Const: General: cooperative, healthy appearing, comfortable, no acute distress, well developed, alert and well nourished Nutritional Appearance: well nourished Orientation/consciousness: patient oriented x3 Limitations: no limitations HENMT: Head: normal to inspection Ears: hearing grossly normal bilaterally, external ears normal, Abnormal EAC present EAC tenderness and other (pink lower canal ); no cerumen impaction, no excessive cerumen and no edema and TM abnormal with fluid behind the TM bilateral Face/Nose/Sinus: Normal external nose present, Normal nares present, No nasal discharge present and normal facial exam Face and sinus: normal facial exam and sinuses nontender Mouth: Yes Normal oral and palatal mucosa present, Yes lip normal, Yes tongue normal and Yes moist mucous membranes Throat: posterior oropharynx normal, uvula midline and no uvular edema Eyes: General: appearance normal, both eyes and all related structures Alignment and Position: alignment normal Neck: Neck: normal visual inspection, full ROM, no lymphadenopathy and no meningeal signs Chest: Chest palpation & inspection: normal inspection of the chest Resp: Effort & Inspection: normal respiratory effort and able to speak in complete sentences Auscultation: clear to auscultation bilaterally, no crackles, no rales, no rhonchi and no wheezes Cardio: Rate: regular rate Skin: General skin exam: normal color and no rashes or lesions noted Neuro: General: patient oriented x3, gait normal, moves all extremities and no meningeal signs Cognition (Neuro): normal cognition Speech: normal speech Gait exam (Neuro): Normal gait present Extrem: General: normal to inspection, full ROM, capillary refill normal and normal gait Psych: Appearance: grossly normal and well kempt Mental Status: mental status grossly normal Speech and movement: Normal speech and movement present and Clear speech present Affect: normal affect Attitude: cooperative Course Course Level of Care: Express Care Visit Vital Signs Vital signs: Vital Signs Temperature 97.7 F 07/19/24 10:35 Pulse Rate 79 07/19/24 10:35 Respiratory Rate 20 07/19/24 10:35 Blood Pressure 113/67 07/19/24 10:35 Pulse Oximetry 98 07/19/24 10:35 Oxygen Delivery Room Air 07/19/24 10:35 Temperature 97.7 F 07/19/24 10:35 Pulse Rate 79 07/19/24 10:35 Respiratory Rate 20 07/19/24 10:35 Blood Pressure 113/67 07/19/24 10:35 Pulse Oximetry 98 07/19/24 10:35 Oxygen Delivery Room Air 07/19/24 10:35 Reviewed Medical Decision Making MDM Narrative Medical decision making narrative: Patient sitting in exam room. Patient is nontoxic, vitals stable. Patient presents with 3-4 day history of ear pressure, discomfort. Clear fluid noted behind bilateral TMs. Worse on the right than the left. Lower aspect of the ear canal mildly pink without significant erythema, swelling. Patient appropriate for outpatient treatment with close follow Discharge instructions reviewed with patient, as well as provided in writing per nursing staff. The instructions also include specific and strict return/GO TO THE ER as well as f/u information. All questions have been answered, and the patient deny any further questions with discharge and discharge plan. Some parts of this dictation were generated by voice recognition software and may contain typographical and/or grammatical inaccuracies. Differential Diagnosis Differential Diagnosis: Otitis media, serous otitis, otitis externa, URI, Medical Records Medical records reviewed: Yes I reviewed the external patient's medical records. Vital Signs Vital Signs: Vital Signs Temperature 97.7 F 07/19/24 10:35 Pulse Rate 79 07/19/24 10:35 Respiratory Rate 20 07/19/24 10:35 Blood Pressure 113/67 07/19/24 10:35 Pulse Oximetry 98 07/19/24 10:35 Oxygen Delivery Room Air 07/19/24 10:35 Temperature 97.7 F 07/19/24 10:35 Pulse Rate 79 07/19/24 10:35 Respiratory Rate 20 07/19/24 10:35 Blood Pressure 113/67 07/19/24 10:35 Pulse Oximetry 98 07/19/24 10:35 Oxygen Delivery Room Air 07/19/24 10:35 Reviewed Lab Data Lab results reviewed: Yes I reviewed the patient's lab results. Labs: Reviewed Critical Care Time Critical Care Time Critical Care Time: No Discharge Plan Discharge Clinical Impression: Ear ache, Irritation of external ear canal Patient Disposition: Home Condition: Stable Instructions: Antibiotic Form, Earache (ED), Fluid In The Ear (Serous Otitis Media) (ED) Additional Instructions: -Alternate Tylenol and Motrin per package directions for fever or pain. You can alternate every 4 hours -Antihistamine medication such as Zyrtec/Claritin/Doris during the day can help improve symptoms. -doing daily nasal irrigations can help relieve pressure your sinuses. Things like a Neti pot -Use Flonase twice a day for 5 days then daily to help reduce the inflammation and dry up your sinuses. -You can also use Mucinex. Be sure to drink plenty of water with this medication at least 8 ounces with every dose and it is important to drink 8 to 10 glasses of water per day. Water is a natural decongestant -Eat and drink things that are easy to swallow, like tea or soup, or popsicles. -Oral rinses such as: Salt water gargles and/or may use topical anesthetic (eg. Chloraseptic spray) or lozenges to relieve dryness or throat pain). -Frequent hand washing or hand [facility] chemist is one of the best ways to prevent spread of infection. -Using a vaporizer or humidifier at night will also help thin secretions and help with coughing up phlegm. -Follow up with primary care provider in 7-10 days if condition is not improving - For new or worsening symptoms go directly to the nearest ER Patient Language: Serbian Prescriptions: New [id number] 3.5-10,000-1 mg/mL-unit/mL-% drops,suspension 4 drp RIGHT EAR TID 5 Days Qty: 10 0RF No Action propranolol 60 mg capsule,extended release 24 hr 60 mg PO DAILY sertraline 50 mg tablet 50 mg PO DAILY cetirizine 10 mg tablet 10 mg PO DAILY Qty: 90 3RF tizanidine 4 mg tablet 4 mg PO QHS Qty: 30 2RF venlafaxine 37.5 mg capsule,extended release 24hr 37.5 mg PO QPM Qty: 30 3RF Follow-up/Referrals: Shelli Avelar MD [Primary Care Provider] -
== END 2024-07-19 10:59 | disposition home or self-care (01) ==
PROVIDERS: Emergency Provider Nurse Practitioner; PCP Family Medicine
DX: H92.01 Otalgia, right ear (principal); H61.891 Other specified disorders of right external ear; Z87.891 Personal history of nicotine dependence; E03.9 Hypothyroidism, unspecified; M41.9 Scoliosis, unspecified
CPT/HCPCS: 99213; G0463

== ENCOUNTER 2024-11-18 14:16 | Emergency (ER) | payer OTHER, SELFPAY ==
[2024-11-18 14:22] VITALS: BP 117/84; PULSE 63; RESP 20; TEMP 36.9; O2SAT 99
--- NOTE | 2024-11-18 14:25 | ED.GENADULT ---
HPI - General Adult General Chief complaint: Ear Stated complaint: left ear pain Time Seen by Provider: 11/18/24 14:25 Source: patient Mode of arrival: ambulatory Limitations: no limitations History of Present Illness HPI narrative: 29-year-old female patient presents to the [facility] with complaints of left ear pain for the past 2 days. Patient states she did take some Tylenol for her pain. Patient states she did have some leftover ear drops that she did take but it did not help. Patient states that her whole left side of the face is hurting denies fevers body aches or chills. Denies any runny nose, sore throat. Denies chest pain shortness of breath. Denies abdominal pain nausea vomiting diarrhea. Denies stating that she is had a tubal ligation Related Data Home Medications ?Medication ?Instructions ?Recorded ?Confirmed ?Last Taken ?Type propranolol 60 mg capsule,24 60 mg PO DAILY 07/19/24 07/19/24 Unknown History hr,extended release sertraline 50 mg tablet 50 mg PO DAILY 07/19/24 07/19/24 Unknown History Allergies Allergy/AdvReac Type Severity Reaction Status Date / Time lithium Allergy Mild Shakiness Verified 11/18/24 14:28 lavender (Lavandula Allergy Dyspnea / Verified 07/19/24 10:45 angustifolia) SOB phenazopyridine (From Azo) Allergy Hives Verified 07/19/24 10:45 aspartame AdvReac Migraine Verified 07/19/24 10:45 Review of Systems Review of Systems: CONSTITUTIONAL: Denies fever, chills, or sweats. EYES: Denies visual changes, redness, or discharge. ENT: Denies rhinorrhea, congestion, sore throat, positive left otalgia. CARDIOVASCULAR: Denies chest pain, palpitations, or edema. RESPIRATORY: Denies cough or dyspnea. GASTROINTESTINAL: Denies abdominal pain, nausea, vomiting, or diarrhea. GENITOURINARY: Denies dysuria or hematuria. SKIN: Denies rash or itching. MUSCULOSKELETAL: Denies back pain, joint pain, or myalgia. NEUROLOGIC: Denies headache, numbness, or weakness. PSYCHIATRIC: Denies anxiety or depression. [facility] Past Medical History Medical History Gestational diabetes Allergic rhinitis Hypothyroidism Scoliosis of thoracic spine Surgical History Surgical History H/O foot surgery Hx of tonsillectomy Social History Social History Smoking packs per day: 0.20 Smoking cigarettes per day: 4.0 Years smoked: 6 Smoking pack-years: 1.20 Smoking status: Former smoker Second hand tobacco smoke exposure: No Smoking end date: 04/29/19 Alcohol intake: current Alcohol use details: social Substance use: never Substance use type: does not use Lack of Transportation: No Lack of Food: Never True Current Housing: I Have Housing Concerned About Future Housing: No Difficulty Paying Gas/Electric Bills: No Difficulty Paying for Meds: No Currently Unemployed: No Education: Trade/Vocational Certificate Difficulty w/ Childcare or Family Care: No Living arrangements: with family Occupation/Education: unemployed Gender identity (if verbalized by the patient): Female Spiritual care concerns: No Agree to blood products: Yes Comments At the time of my signature I agree with nursing past medical history, surgical, social, and family history. There is no relevant family history pertinent to the presenting complaint. Exam Narrative: GENERAL: Well-appearing, well-nourished, and in no acute distress. HEAD: Normocephalic, atraumatic. EYES: PERRLA and EOMI. ENT: Nares clear, no rhinorrhea or epistaxis. Mucous membranes moist. Left canal does appear to have some erythema and swelling noted to the canal. The TM appears normal. Posterior pharynx with no erythema, tonsillar enlargement, exudates or lesions present. NECK: Supple. No lymphadenopathy CHEST: Clear to auscultation. No respiratory distress. HEART: Regular rate and rhythm. No murmur heard. Normal peripheral pulses. ABDOMEN: Soft, nontender, nondistended, normal active bowel sounds. EXTREMITIES: Normal range of motion. No edema. SKIN: Warm, dry, no rash. NEURO: No focal deficits. Alert and oriented x3. Course Course Level of Care: Express Care Visit Vital Signs Vital signs: Vital Signs Temperature 36.9 C 11/18/24 14:22 Pulse Rate 63 11/18/24 14:22 Respiratory Rate 20 11/18/24 14:22 Blood Pressure 117/84 11/18/24 14:22 Pulse Oximetry 99 11/18/24 14:22 Oxygen Delivery Room Air 11/18/24 14:22 Temperature 36.9 C 11/18/24 14:22 Pulse Rate 63 11/18/24 14:22 Respiratory Rate 20 11/18/24 14:22 Blood Pressure 117/84 11/18/24 14:22 Pulse Oximetry 99 11/18/24 14:22 Oxygen Delivery Room Air 11/18/24 14:22 Vital signs reviewed. Medical Decision Making MDM Narrative Medical decision making narrative: Plan of care patient is discharged home with antibiotic ear drop for concerns for bacterial infection to the ear canal. Discussed with patient to follow-up with her primary doctor if her pain continues past 2-3 days. Patient verbalized understanding denies any other questions or concerns at this time. During time of exam patient was actively talking on a video call and was asked to hang up the call or the practitioner can come back when she is done with the call but we do not allow cell phone is used during exam. Patient was not happy about this but did turn off the call. Differential Diagnosis Differential Diagnosis: Differential diagnosis: Otitis media, otitis externa, perforated TM, infection of the outer ear, foreign body or cerumen impaction, ruptured TM, acute mastoiditis, ligament otitis externa, dehydration, pneumonia, sepsis, dental or intraoral infection, TMJ dysfunction Vital Signs Vital Signs: Vital Signs Temperature 36.9 C 11/18/24 14:22 Pulse Rate 63 11/18/24 14:22 Respiratory Rate 20 11/18/24 14:22 Blood Pressure 117/84 11/18/24 14:22 Pulse Oximetry 99 11/18/24 14:22 Oxygen Delivery Room Air 11/18/24 14:22 Temperature 36.9 C 11/18/24 14:22 Pulse Rate 63 11/18/24 14:22 Respiratory Rate 20 11/18/24 14:22 Blood Pressure 117/84 11/18/24 14:22 Pulse Oximetry 99 11/18/24 14:22 Oxygen Delivery Room Air 11/18/24 14:22 Critical Care Time Critical Care Time Critical Care Time: No Discharge Plan Discharge Clinical Impression: Acute otitis externa of left ear Patient Disposition: Home Condition: Stable Instructions: Antibiotic Form, Swimmer's Ear (ED) Additional Instructions: Return to the emergency department if: You have severe ear pain. You are suddenly unable to hear at all. You have new swelling in your face, behind your ears, or in your neck. You suddenly cannot move part of your face. Your face suddenly feels numb. Contact your healthcare provider if: You have a fever. Your signs and symptoms do not get better after 2 days of treatment. Your signs and symptoms go away for a time, but then come back. You have questions or concerns about your condition or care. Medicines: NSAIDs , such as ibuprofen, help decrease swelling, pain, and fever. This medicine is available with or without a doctor's order. NSAIDs can cause stomach bleeding or kidney problems in certain people. If you take blood thinner medicine, always ask if NSAIDs are safe for you. Always read the medicine label and follow directions. Do not give these medicines to children under 6 months of age without direction from your child's healthcare provider. Acetaminophen decreases pain and fever. It is available without a doctor's order. Ask how much to take and how often to take it. Follow directions. Acetaminophen can cause liver damage if not taken correctly. Ear drops that contain an antibiotic may be given. The antibiotic helps treat a bacterial infection. You may also be given steroid medicine. The steroid helps decrease redness, swelling, and pain. How to use eardrops: Lie down on your side with your infected ear facing up. Carefully drip the correct number of eardrops into your ear. Have another person help you if possible. Gently move the outside part of your ear back and forth to help the medicine reach your ear canal. Stay lying down in the same position (with your ear facing up) for 3 to 5 minutes. Prevent otitis externa: Do not put cotton swabs or foreign objects in your ears. Wrap a clean moist washcloth around your finger, and use it to clean your outer ear and remove extra ear wax. Use ear plugs when you swim. Dry your outer ears completely after you swim or bathe. Patient Language: Divehi Prescriptions: New ofloxacin 0.3 % drops 10 drp EACH EAR DAILY 7 Days Qty: 10 0RF No Action [id number] 3.5-10,000-1 mg/mL-unit/mL-% drops,suspension 4 drp RIGHT EAR TID 5 Days Qty: 10 0RF propranolol 60 mg capsule,extended release 24 hr 60 mg PO DAILY sertraline 50 mg tablet 50 mg PO DAILY cetirizine 10 mg tablet 10 mg PO DAILY Qty: 90 3RF venlafaxine 37.5 mg capsule,extended release 24hr 37.5 mg PO QPM Qty: 30 3RF tizanidine 4 mg tablet 4 mg PO QHS Qty: 30 2RF Follow-up/Referrals: Shelli Avelar MD [Primary Care Provider, [facility]] Time of Disposition: 14:36
== END 2024-11-18 14:36 | disposition home or self-care (01) ==
PROVIDERS: Emergency Provider Nurse Practitioner Family; PCP Family Medicine
DX: H60.92 Unspecified otitis externa, left ear (principal); Z87.891 Personal history of nicotine dependence; E03.9 Hypothyroidism, unspecified; M41.9 Scoliosis, unspecified
CPT/HCPCS: 99213; G0463